=== PATIENT | female | born 1965 | race Caucasian/White ===

== ENCOUNTER 2016-06-02 10:58 | Emergency (ER) | payer OTHER ==
[2016-06-02 11:19] VITALS: RESP 18; TEMP 98.4
--- NOTE | 2016-06-02 11:28 | UCPHY ---
H & P Patient Type: New Chief Complaint Nursing Narrative: cough, congestion, headache, chills for 2 weeks, denies documented fevers. noted brown sputum this morning with cough Time Seen by Provider: 06/02/16 11:14 HPI/ROS: Chief Complaint: Cough HPI: 50-year-old woman presenting with 3 weeks of upper respiratory symptoms including cough congestion fevers and chills. Body aches. Patient states she has initially had a dry cough and a cough been worsening for the last 2 days is now productive of brown sputum. Does have some pain with her cough. Some mild shortness of breath. Not currently having any fevers or chills. No nausea or vomiting. ROS: 10 point Review of Systems is negative except as noted in the HPI. PMH: Migraine headache Allergies: No known drug allergies Social History: smoking, no alcohol, no recreational drug use Family History: non-contributory Physical Exam: Gen: Awake, Alert, No Distress HEENT: Nose: no rhinorrhea Eyes: PERRLA, EOMI Mouth: Moist mucosa Neck: Supple, no JVD Chest: nontender, diffuse coarse lung sounds Heart: S1, S2 normal, no murmur Abd: Soft, non-tender, no guarding Back: no CVA tenderness, no midline tenderness Ext: no edema, non-tender Skin: no rash Neuro: CN II-XII intact, Sensation grossly intact, Strength 5/5 in bilateral upper and lower extremities - Personal History LMP (Females 10-55): Irregular - Medical/Surgical History Hx Asthma: No Hx Chronic Respiratory Disease: No Hx Diabetes: No Hx Cardiac Disease: No Hx Renal Disease: No Hx Cirrhosis: No Hx Alcoholism: No Hx HIV/AIDS: No Hx Splenectomy or Spleen Trauma: No Other PMH: migraines, back surg, ACL repair, - Family History Significant Family History: No pertinent family hx - Social History Smoking Status: Former smoker Constitutional: Initial Vital Signs Temperature (C) 36.9 C 06/02/16 11:17 Heart Rate 65 06/02/16 11:17 Respiratory Rate 18 06/02/16 11:17 Blood Pressure 98/52 L 06/02/16 11:17 O2 Sat (%) 95 06/02/16 11:17 O2 Delivery Mode Room Air Allergies/Adverse Reactions: No Known Allergies Allergy (Unverified 06/02/16 11:16) Home Medications: Medication Instructions Recorded Calcium Carbonate [Tums 500MG (*)] 500 - 1,000 mg PO DAILY PRN 09/07/14 Herbals/Supplements -Info Only 1 ea PO DAILY 09/07/14 Naratriptan HCl [Naratriptan] 2.5 mg PO DAILY PRN 09/07/14 Omeprazole Magnesium [Prilosec Otc] 20 mg PO DAILY PRN 09/07/14 Ondansetron Odt [Zofran Odt] 4 - 8 mg PO Q4 PRN 09/07/14 ZOLMitriptan [Zomig] 5 mg NS DAILY PRN 09/07/14 AZITHROMYCIN [Z-PACK] 250 mg PO DAILY #6 tab 06/02/16 Medical Decision Making ED Course/Re-evaluation: Patient's symptoms consistent with a secondary bronchitis from a flu-like illness. Symptoms are persisting past 3 weeks. Will start her on azithromycin and have her follow up with primary care physician in 3-4 days if symptoms are not improving. Departure - Departure Disposition: Home, Routine, Self-Care Clinical Impression: Bronchitis Condition: Good Instructions: Acute Bronchitis (ED) Additional Instructions: Take your full course of antibiotics. You may alternate ibuprofen with acetaminophen for fevers, chills, aches, or pains. Follow up with your primary care physician in 3-4 days for re-evaluation. Referrals: Anna Contreras MD [Primary Care Provider] - As per Instructions Prescriptions: AZITHROMYCIN [Z-PACK] 250 mg PO DAILY #6 tab - PQRS PQRS Measurement: NA
[2016-06-02 11:36] VITALS: BP 101/67; PULSE 82; O2SAT 96
== END 2016-06-02 11:33 | disposition home or self-care (01) ==
LOC: CED 10:58
DX: J20.9 Acute bronchitis, unspecified (principal); Z87.891 Personal history of nicotine dependence
CPT/HCPCS: 99204-PO; G0463-PO

== ENCOUNTER → 2018-08-26 | Outpatient (CLI) | payer OTHER | LOC: EMCIMAGING 07:45 ==